=== PATIENT | female | born 1990 | race Caucasian/White ===

== ENCOUNTER 2019-07-22 19:03 | Emergency (ER) | payer BC ==
[~2019-07-22] VITALS: Ht 167.6 cm; Wt 51.0 kg
[2019-07-22 19:34] VITALS: Ht 167.6 cm; Wt 51.0 kg
[2019-07-22 21:03] VITALS: BP 104/74
== END 2019-07-22 21:03 | disposition home or self-care (01) ==
LOC: ED 19:03
DX: F41.9 Anxiety disorder, unspecified (principal)

== ENCOUNTER 2019-07-24 12:00 | Emergency (ER) | payer BC ==
[~2019-07-24] VITALS: Ht 167.6 cm; Wt 50.3 kg
[2019-07-24 12:13] VITALS: Ht 167.6 cm; Wt 50.3 kg
[2019-07-24 13:39] LABS: PLATELET COUNT 362 x10^3mcL (130-400)
[2019-07-24 13:40] LABS: RED CELL DISTRIBUTION WIDTH 14.7 % (11.5-14.5)
[2019-07-24 14:11] LABS: microscopic required? NO
[2019-07-24 14:19] LABS: urine erythrocyte NEGATIVE (NEGATIVE)
[2019-07-24 14:40] LABS: CALCIUM 9.7 mg/dL (8.5-10.1); CARBON DIOXIDE 28.3 mmol/L (21-32); CHLORIDE SERUM 102 mmol/L (98-107); CREATININE SERUM 1.1 mg/dL (0.6-1.0); GFR1 > 60 mL/min; GLUCOSE SERUM 83 mg/dL (74-106); POTASSIUM SERUM 4.3 mmol/L (3.5-5.1); SODIUM SERUM 138 mmol/L (136-145)
[2019-07-24 14:44] LABS: AMPHETAMINE QUAL UR NONE DETECTED (See below)
[2019-07-24 14:52] LABS: ALBUMIN 4.3 g/dL (3.4-5.0); ALKALINE PHOSPHATASE 56 U/L (46-116); ALT/SGPT 22 U/L (14-59); AST/SGOT 8 U/L (15-37); LIPASE 108 IU/L (73-393); MAGNESIUM 2.1 mg/dL (1.8-2.4); T4(THYROXINE) 6.2 ug/dL (4.7-13.3); TOTAL PROTEIN, SERUM 7.9 g/dL (6.4-8.2)
[2019-07-24 14:53] LABS: CHOLESTEROL 251 mg/dL (<200); HDL CHOLESTEROL 67 mg/dL (40-60)
[2019-07-24 15:56] VITALS: BP 96/60
== END 2019-07-24 15:56 | disposition home or self-care (01) ==
LOC: ED 12:00
PROVIDERS: Emergency Medicine
DX: I95.1 Orthostatic hypotension (principal); F41.0 Panic disorder [episodic paroxysmal anxiety]; F17.210 Nicotine dependence, cigarettes, uncomplicated; Z98.890 Other specified postprocedural states
CPT/HCPCS: 36415; G0480; J7030; Q0092